=== PATIENT | male | born 1965 | race Caucasian/White ===

== ENCOUNTER 2018-04-16 14:18 | Emergency (ER) | payer BC ==
[2018-04-16] MEDS ORDERED: BENZOCAINE 20% AEROSOL SPRAY 60 GM TP ONE (14:24)
--- NOTE | 2018-04-16 14:44 | ER Document Report ---
ED General - General Chief Complaint: Breathing Difficulty Stated Complaint: DIFFICULTY BREATHING Time Seen by Provider: 04/16/18 14:22 Primary Care Provider: [facility] [Provider Group] - Follow up as needed Mode of Arrival: Ambulatory Information source: Patient - HPI Patient complains to provider of: Stuck in throat Onset: Other - 53-year-old man who is eating today at which time he felt a piece of onions lodged at the base of his throat after which he has had difficulty breathing and inability to move his neck in any direction. Is otherwise healthy gentleman with no known problems never had anything like this in the past does not believe that it could be anything else, is never had any problems swallowing anything in the past. - Related Data Allergies/Adverse Reactions: No Known Allergies Allergy (Unverified 04/16/18 14:24) Past Medical History - General Information source: Patient, Relative - Social History Smoking Status: Never Smoker Chew tobacco use (# tins/day): No Frequency of alcohol use: Occasional Drug Abuse: None Family History: None Patient has suicidal ideation: No Patient has homicidal ideation: No Renal/ Medical History: Denies: Hx Peritoneal Dialysis Review of Systems - Review of Systems -: Yes All other systems reviewed and negative Physical Exam - Vital signs Vitals: Pulse Ox 97 04/16/18 14:21 - General General appearance: Appears well, Alert - HEENT Head: Normocephalic Eyes: Normal Conjunctiva: Normal Cornea: Normal Extraocular movements intact: Yes Eyelashes: Normal Pupils: PERRL Nerve palsy: Yes Visual iraheta normal: Yes Ears: Normal External canal: Normal Nasal: Normal Mouth/Lips: Normal Mucous membranes: Normal Pharynx: Normal Neck: Other - Stiff in posture and slightly turned to the left due to pain in the anterior throat - Respiratory Respiratory status: No respiratory distress Chest status: Nontender Breath sounds: Normal Chest palpation: Normal - Cardiovascular Rhythm: Regular Heart sounds: Normal auscultation Murmur: No - Abdominal Inspection: Normal Distension: No distension Bowel sounds: Normal Tenderness: Nontender Organomegaly: No organomegaly - Back Back: Normal, Nontender - Extremities General upper extremity: Normal inspection, Nontender, Normal color, Normal ROM, Normal temperature General lower extremity: Normal inspection, Nontender, Normal color, Normal ROM, Normal temperature, Normal weight bearing. No: Bhavana's sign - Neurological Neuro grossly intact: Yes Cognition: Normal Orientation: AAOx4 Buckner Coma Scale Eye Opening: Spontaneous Clint Coma Scale Verbal: Oriented Clint Coma Scale Motor: Obeys Commands Buckner Coma Scale Total: 15 Speech: Normal Motor strength normal: LUE, RUE, LLE, RLE Sensory: Normal Course - Re-evaluation Re-evalutation: This gentleman was brought back emergently from the waiting room because of a concern of a hunk of onion being lodged in his throat. On my evaluation the gentleman was in a tripod position tolerating his own secretions and breathing on room air. He had a poor malum potty score obscuring his oropharynx making it difficult to see if there was a hawk of bunion obviously in the back. As he was tolerating his own secretions and breathing without any other intervention at this time deferred emergent intubation or administration of serious medications. Spoke to the patient about treatment options, we proceeded with administration of Hurricaine spray in the oropharynx and attempt using a bedside scope to look in the posterior pharynx, he was unable to tolerate this due to repeated gagging. Because of his inability to tolerate the STUDENT TEACHER scope through the mouth proceeded with viscous lidocaine numbing up the right nare. After administration of viscous lidocaine in the right nostril placed in STUDENT TEACHER airway in place and fed the STUDENT TEACHER scope through the airway, was able to visualize well the patient's oropharynx, epiglottis, arytenoids, and larynx. The visualization did not demonstrate any retained piece of onion near the epiglottic folds arytenoids are periepiglottic folds. Because I did not see the piece of volume impending on the airway proceeded with administration of viscous lidocaine orally and a dose of glucagon as it may potentially have bad irritation or in his esophagus. Also administer Decadron for the irritation of the oropharynx. Following administration of these medications and a brief observation period in the emergency department the patient was able to tolerate p.o., he was able to tolerate solids, multiple mixed liquids including soda. He felt better and did not feel any foreign body sensation thereafter. He subsequently is discharged home with return precautions breathing comfortably on room air. - Vital Signs Vital signs: Temp Pulse Resp BP Pulse Ox 98.6 F 79 18 129/98 H 100 04/16/18 18:33 04/16/18 18:33 04/16/18 18:33 04/16/18 18:33 04/16/18 18:33 Discharge - Discharge Clinical Impression: Foreign body, Sore throat Difficulty swallowing Qualifiers: Dysphagia type: unspecified Qualified Code(s): R13.10 - Dysphagia, unspecified Condition: Good Disposition: HOME, SELF-CARE Additional Instructions: You were seen today in the emergency department for the feeling of something being stuck in your throat. You had an evaluation including a physical exam, a scope of your throat, and medications. You were given medicines to try and help with this. It does not appear that the foreign body is stuck in your throat. Return in case you have any worsening shortness of breath, pain in the throat, fevers or chills. Otherwise follow-up with your primary physician. Referrals: [facility] [Provider Group] - Follow up as needed
[2018-04-16] MEDS ORDERED: LIDOCAINE 2% VISCOUS SOLN 20 ML UDCUP PO ONE ×2 (15:02→15:24)
[2018-04-16] MEDS ORDERED: GLUCAGON,HUMAN RECOMB 1 MG INJ IV PRN (15:03)
[2018-04-16] MEDS ORDERED: DEXAMETHASONE CONC 1 MG/ML SOLN PO ONE (15:56)
[2018-04-16] MEDS ORDERED: DEXAMETHASONE SOD PHOS INJ 10 MG/1 ML VIAL IV ONE (16:27)
[2018-04-16 18:34] VITALS: BP 129/98
== END 2018-04-16 18:34 | disposition home or self-care (01) ==
LOC: ER 14:18
DX: R09.89 Other specified symptoms and signs involving the circulatory and respiratory systems (principal); R13.10 Dysphagia, unspecified; J02.9 Acute pharyngitis, unspecified
CPT/HCPCS: 99283; 96374; J3490 ×2; J1610; J1100

== ENCOUNTER → 2019-10-13 | Outpatient (CLI) | payer BC ==
--- NOTE | 2019-10-13 18:25 | RADIOLOGY REPORT (SQ) ---
EXAM DESCRIPTION: CT SOFT TISSUE NECK WITH IMAGES COMPLETED DATE/TIME: 10/13/2019 4:31 pm REASON FOR STUDY: R68.84 JAW PAIN H92.09 OTALGIA, UNSPECIFIED EAR R59.9 ENLARGED LYMPH NODES, R68.84 JAW PAIN H92.09 OTALGIA, UNSPECIFIED EAR R59.9 ENLARGED LYMPH NODES, UNSPECIFIED. Ear pain, lymp h node enlargement, jaw pain. COMPARISON: None. TECHNIQUE: Post IV contrasted scanning from skull base through lung apices with review of bone, soft tissue and lung windows. Reconstructed coronal and sagittal MPR images reviewed. All images stored on PACS. All CT scanners at this facility use dose modulation, iterative reconstruction, and/or weight based d osing when appropriate to reduce radiation dose to as low as reasonably achievable (ALARA). [facility]: Dose Right [facility]: CareDose [facility]: Dose Right [facility]: Teradose 4D [facility]: Theravance CONTRAST TYPE AND DOSE: contrast/concentration: Isovue 350.00 mmol/ml; Total Contrast Delivered: 77. 2 ml; Total Saline Delivered: 56.0 ml RENAL FUNCTION: Creatinine 1.2 today. RADIATION DOSE: CT Rad equipment meets quality standard of care and radiation dose reduction techniq ues were employed. CTDIvol: 20.2 mGy. DLP: 695 mGy-cm. . LIMITATIONS: None. FINDINGS: SKULL BASE: Intact. MAJOR SALIVARY GLANDS: The radiopaque marker is seen overlying the right submandibular gland. This h as asymmetric enlargement with mild diffuse increased attenuation, suggestive of acute inflammation. No surrounding fluid or focal drainable abscess. No duct dilation or obstructing calcification is v isualized. The left submandibular gland and bilateral parotid glands have a normal CT appearance. LYMPHADENOPATHY: There is no cervical adenopathy. No supraclavicular adenopathy. No upper mediastin al adenopathy. MUCOSAL MASSES OR ASYMMETRY: No mucosal masses or asymmetry. LARYNX/CORDS: No abnormal findings. VASCULAR STRUCTURES: The right common carotid artery has a retropharyngeal course. Normal appearance of the internal carotid arteries without evidence of stenosis. Bilateral vertebral arteries are pat ent through the neck. Intracranial segments of the right vertebral artery is not definitely identifi ed. The left vertebral artery is widely patent as is the basilar artery and vessels of the [place] as visualized. Aortic arch has normal caliber. . LUNG APICES: Clear. BONES: Intact. THYROID: Normal size. No masses. PARANASAL SINUSES: Polypoid mucosal thickening inferior left maxillary sinus. No air-fluid levels. Remaining paranasal sinuses are clear. OTHER: There is a soft tissue mass measuring at least 1.5 cm in the left mastoid air cells with erosi on of the normal antrum, inner ear ossicles and probably erosion of the scutum, difficult to evaluate without high-resolution images. Soft tissue extends into the external auditory canal and middle ear . IMPRESSION: 1. Asymmetric enlargement and edema involving the right submandibular gland in the area of concern co nsistent with acute sialoadenitis. There is no cervical adenopathy or focal drainable abscess. No o bstructing calculus is seen. 2. 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 No karime dence of superimposed acute infection. ENT consultation is recommended. 3. Retropharyngeal course of the right common carotid artery is noted, a normal variant. TECHNICAL DOCUMENTATION: JOB ID: [id number] Quality ID # [id number]: Final reports with documentation of one or more dose reduction techniques (e.g., Au tomated exposure control, adjustment of the mA and/or kV according to patient size, use of iterative reconstruction technique) 2010 [employer]- All Rights Reserved Reading location - IP/workstation name: [email or web address]
== END ==
LOC: RAD 16:28
PROVIDERS: ATTEND Physician Assistant Medical
DX: R68.84 Jaw pain (principal); H71.92 Unspecified cholesteatoma, left ear; R59.9 Enlarged lymph nodes, unspecified
CPT/HCPCS: 70491; 82565